=== PATIENT | male | born 1965 | race Caucasian/White ===

== ENCOUNTER 2021-04-10 17:28 | Emergency (ER) | payer OTHER, SELFPAY ==
[2021-04-10 17:29] VITALS: BP 138/84; PULSE 108; RESP 18; TEMP 39.4; O2SAT 95; BMI 18.1
--- NOTE | 2021-04-10 17:54 | RAD_ITS ---
STUDY: X-RAY CHEST REASON FOR EXAM: Male, 55 years old. FEVER TECHNIQUE: AP portable COMPARISON: 07/04/2005 FINDINGS: Mild patchy infiltrate in the right lower lobe.. There is no demonstrated pleural abnormality. Normal size heart. Normal mediastinum and nery. Normal visualized pulmonary arteries. Normal visualized aortic arch and descending thoracic aorta. Normal visualized thoracic spine. Normal visualized ribs, clavicles, and shoulders. There is no demonstrated abnormality of the visualized soft tissue structures of the upper abdomen. RAD/Chest 1 View IMPRESSION: Mild right lower lobe pneumonia. Electronically Signed: Andrew Ramsey MD at 18:24 EDT , Service support ,
[2021-04-10 18:12] VITALS: TEMP 38
--- NOTE | 2021-04-10 18:20 | EKG12_ITS ---
Test Reason : DYSRHYTHMIA Blood Pressure : / mmHG Vent. Rate : 096 BPM Atrial Rate : 096 BPM P-R Int : 140 ms QRS Dur : 088 ms QT Int : 318 ms P-R-T Axes : 076 075 071 degrees QTc Int : 401 ms Normal sinus rhythm Normal ECG Confirmed by TANVIR HERNANDEZ, ADRIEL ([id number]), state editor CLAIRE ADAMSON ([id number]) on 04/11/2021 1:51:39 PM Referred By: GEENA Confirmed By:ADRIEL RAMEY MD
--- NOTE | 2021-04-10 18:24 | CT_ITS ---
STUDY: CT BRAIN WITHOUT CONTRAST REASON FOR EXAM: Male, 55 years old. headache RADIATION DOSAGE (If Supplied By Facility): CTDIvol = ( 44.99 ) mGy, DLP = ( 829.85 ) mGycm TECHNIQUE: Transaxial CT imaging of the brain was performed without administration of intravenous contrast material. Individualized dose optimization techniques were used for this CT. COMPARISON: No relevant priors. FINDINGS: Normal soft tissue structures. Normal calvarium. Normal size ventricles and extra-axial spaces for the patient''s age. Minor periventricular white matter ischemic changes.. Normal basal ganglia and thalami. Normal brainstem. Normal cerebellum. There is no intracranial hemorrhage. There are no findings of an acute ischemic infarction. Normal visualized paranasal sinuses. CT/Brain/Head without Contrast IMPRESSION: Minor periventricular white matter ischemic change. No evidence for obstructive hydrocephalus mass or acute. Electronically Signed: Andrew Ramsey MD at 19:49 EDT , Service support ,
--- NOTE | 2021-04-10 18:24 | EDS_ITS ---
HPI History of Present Illness Chief Complaint: Fever Narrative Narrative: 55-year-old male with history of fever since Wednesday. He states his temperatures have typically got up to about 102. 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 He denies any known injury. He has a headache without any paresthesias, dizziness, visual complaints. Patient states that he has no other known sick contacts. His is with him and she has not been ill. He complains of nausea but has not been vomiting is actually been eating chicken soup and drinking fluids. He has not been vaccinated for COVID- 19. He denies cough,, change in taste or smell. He denies chest pain or shortness of breath. He denies nausea vomiting or diarrhea. He states he has no known medical problems. Patient states that he took 1 dose of Tylenol at 9 in the morning but has not taken another of Tylenol or ibuprofen. He states that he does not like to take pills and just wanted to come to the emergency room to be checked out. PFSH PFSH Medical History no medical history Home Medications azithromycin 250 mg PO DAILY #4 tablet 04/10/21 [Rx Last Taken Unknown] Allergy/AdvReac Type Severity Reaction Status Date / Time Penicillins Allergy Hives Verified 04/10/21 17:28 Social History Smoking Status: Never smoker ROS ROS ED Constitutional Constitutional ED: Reports chills and fever(s) Eyes Eyes: Denies blurry vision or diplopia ENT ENT ED: Denies rhinorrhea or sore throat Cardiovascular Cardiovascular: Denies chest pain or palpitations Respiratory/Chest Respiratory/Chest: Denies cough, dyspnea or sputum Gastrointestinal Gastrointestinal: Reports nausea; Denies abdominal pain, constipation, diarrhea or vomiting Genitourinary Genitourinary ED: Denies dysuria or hematuria Musculoskeletal Musculoskeletal: Reports myalgias and neck pain; Denies arthralgias or back pain Integumentary Denies Abrasions or rash Neurologic Neurologic: Reports headache(s); Denies paresthesias or weakness EXAM Physical Exam Const Vital Signs: 04/10/21 17:29 04/10/21 18:12 04/10/21 18:20 Temperature 102.9 F H 100.4 F H Temperature Source Oral Oral Pulse Rate 108 H Respiratory Rate 18 Respiratory Effort Respiratory Pattern Blood Pressure 138/84 H Blood Pressure Mean 102 Pulse Ox 95 Oxygen Delivery Method Room Air Room Air Oxygen Flow Rate (L/min) 98 04/10/21 18:22 04/10/21 20:06 04/10/21 20:28 Temperature 98.9 F Temperature Source Temporal Pulse Rate 82 78 Respiratory Rate 16 18 Respiratory Effort Normal Non-Labored Respiratory Pattern Normal Blood Pressure 131/67 H 129/60 H Blood Pressure Mean 88 Pulse Ox 95 95 Oxygen Delivery Method Oxygen Flow Rate (L/min) Positive well nourished General Appearance ED: NAD; Negative for pallor HEENT Reports moist mucous membranes Negative for trauma Eyes PERRL and EOMs intact bilaterally General Eye ED: Negative for pale conjunctiva or scleral icterus Neck no lymphadenopathy and supple General: normal visual inspection and trachea midline; Negative for anterior neck swelling, tracheal deviation, submandibular swelling or meningeal signs Chest Wall inspection of chest normal and palpation of chest normal Resp normal respiratory effort and clear to auscultation bilaterally Cardio regular rhythm Rate: tachycardic GI normal to inspection, nondistended, normoactive bowel sounds Extremity normal to inspection General Extremety ED: Negative for edema or tenderness General Extremity: Negative for edema Neuro CN's II-XII intact bilaterally and no sensory deficits noted Sensorium / Orientation: alert Motor Exam: strength 5/5 throughout Psych mental status grossly normal Skin no rashes or lesions noted and no wounds General Skin Exam: Negative for jaundice or pallor MDM MDM MDM Narrative Medical decision making narrative: Patient presenting with headache, neck pain, fever. His symptoms started on Wednesday. He denies a cough, shortness of breath but does have chills and body aches. He said fevers that do respond to Tylenol and ibuprofen but then returned. He has not taken any Tylenol or ibuprofen all day and therefore has been febrile and not eating much. He is able to eat chicken soup. On examination he does not have any meningeal signs although is complaining of neck stiffness he is answering my questions with head nods and shaking his head no he does not have any stiffness on examination. negative jolt sign. His mentation is clear. He has no neurologic findings. Given his tachycardia I did obtain an EKG and is heart rate had decreased to 96 bpm and this is a normal sinus rhythm without signs of ischemic change. CBC shows a leukocytosis of 16.7. There is a left shift and 91.1. Hemoglobin and hematocrit are stable. Platelets are normal. Renal function and electrolytes unremarkable. Troponin is 7. I did obtain a rapid Covid which was negative and therefore did send for a Covid PCR which is also negative. His chest x-ray does show right lower lobe pneumonia on my interpretation and the radiologist does agree. I did obtain a CT brain and cervical spine due to the headache and neck pain and these are both negative for acute abnormalities.I do not believe the patient has meningitis based on his physical examination. He is not having any respiratory symptoms and is not requiring any oxygen and after treating his fever his heart rate is down to 78. He is nontoxic-appearing. At this point I believe the patient can be discharged safely. I will start him on azithromycin with the first dose in the ED. He is given return precautions. Impression: 1. Right lower lobe pneumonia 2. Febrile illness 3. Neck pain 4. With headache Lab Data Attestation: I reviewed the patient's lab results. Labs: Laboratory Results - last 24 hr 04/10/21 04/10/21 04/10/21 18:31 18:40 18:40 WBC 16.7 H RBC 5.16 Hgb 14.1 Hct 42.6 MCV 82.6 MCH 27.3 MCHC 33.1 RDW Std Deviation 44.2 H RDW Coeff of [place] 14.6 Plt Count 159 MPV 8.9 Immature Gran % (Auto) 0.700 Neut % (Auto) 91.1 H Lymph % (Auto) 3.5 L Mcleod % (Auto) 4.3 Eos % (Auto) 0.0 Baso % (Auto) 0.4 Absolute Neuts (auto) 15.3 H Absolute Lymphs (auto) 0.59 L Nucleated RBC % 0 Differential Comment SCANNED Sodium 133 L Potassium 3.5 Chloride 102 Carbon Dioxide 25.0 Anion Gap 6 BUN 15 Creatinine 1.01 Estim Creat Clear Calc 74.51 Est GFR (MDRD) Af Amer 99 Est GFR (MDRD) Non-Af 82 BUN/Creatinine Ratio 14.9 Glucose 163 H Calcium 8.6 Troponin I High Sens 7 COVID-19 (DEJAN) Not Detected Radiography Diagnostic Testing: Clinical Impression(s) from Imaging Studies Chest X-Ray 04/10/21 17:54 IMPRESSION: Mild right lower lobe pneumonia. Electronically Signed: Andrew Ramsey MD at 18:24 EDT , Service support , Brain CT 04/10/21 18:24 IMPRESSION: Minor periventricular white matter ischemic change. No evidence for obstructive hydrocephalus mass or acute. Electronically Signed: Andrew Ramsey MD at 19:49 EDT , Service support , Cervical Spine CT 04/10/21 18:24 IMPRESSION: No evidence for acute fracture or other significant bony pathology.. Mild spondylosis most pronounced at C3-4 and C5-6 Electronically Signed: Andrew Ramsey MD at 19:53 EDT , Service support , Discharge Plan Triage Chief Complaint: Fever ED Provider: Joel Reed Dx/Rx/DC Orders Instructions: Coronavirus Disease 2019 (COVID-19): Caring for Yourself or Others, ED Pneumonia (Adult) Prescriptions: New azithromycin 250 mg tablet 250 mg PO DAILY Qty: 4 RF: 0 Primary Care Provider: Care Physician,No Primary Referrals: Deniz Nava MD [STAFF PHYSICIAN] - 3-5 Days Care Physician,No Primary [Primary Care Provider] - Disposition Disposition: Home, Self Care Discharge Date/Time: 04/10/21 20:29
--- NOTE | 2021-04-10 18:24 | CT_ITS ---
STUDY: CT CERVICAL SPINE WITHOUT CONTRAST REASON FOR EXAM: Male, 55 years old. neck pain RADIATION DOSAGE (If Supplied By Facility): CTDIvol = ( 18.52 ) mGy, DLP = ( 521.61 ) mGycm TECHNIQUE: High resolution transaxial imaging was performed without contrast material. Sagittal and coronal images were reconstructed. Individualized dose optimization techniques were used for this CT. COMPARISON: None FINDINGS: Normal craniovertebral junction. Normal anterior atlantoaxial articulation. Normal odontoid process. Normal cervical lordosis. Normal vertebral bodies and posterior osseous elements. C2-3: Normal endplates. Normal disc height and morphology. Normal central canal and intervertebral neuroforamina. C3-4: Normal endplates. Normal disc height and small right paracentral disc/osteophyte protrusion. Mild narrowing of the central canal and cord impingement.. C4-5: Normal endplates. Normal disc height and morphology. Normal central canal and intervertebral neuroforamina. C5-6: Mild endplate spurring.. Normal disc height and morphology. Normal central canal. Mild bilateral neuroforaminal encroachment secondary to bony hypertrophy.. C6-7: Normal endplates. Normal disc height and morphology. Normal central canal and intervertebral neuroforamina. C7-T1: Normal endplates. Normal disc height and morphology. Normal central canal and intervertebral neuroforamina. Normal visualized soft tissue structures. Incidental finding of interstitial thickening and emphysematous changes in the upper lobes CT/Spine Cervical without Contras IMPRESSION: No evidence for acute fracture or other significant bony pathology.. Mild spondylosis most pronounced at C3-4 and C5-6 Electronically Signed: Andrew Ramsey MD at 19:53 EDT , Service support ,
[2021-04-10] MEDS: Aspirin 81 MG TAB.CHEW 324 MG PO (18:33)
[2021-04-10] MEDS: Acetaminophen 500 MG Tablet 1000 MG PO (18:33)
[2021-04-10] MEDS: 0.9% Normal Saline 1,000 ML 999 ML IV (18:35)
[2021-04-10 18:48] LABS: Absolute Lymphocyte Count 0.59 X10^3/uL (0.83-4.51); Absolute Neutrophil Count 15.3 X10^3/uL (2.0-7.7); Basophil# 0.06 X10^3/uL; Basophil% 0.4 % (0-1); Hematocrit 42.6 % (40-54); Hemoglobin 14.1 g/dL (13.0-16.5); Lymphocyte # 0.59 X10^3/ul (0.83-4.51); Lymphocyte % 3.5 % (19-41); Mean Corp Hgb Conc 33.1 g/dL (32-36); Mean Corpuscular Hgb 27.3 pg (27.0-32.0); Mean Corpuscular Volume 82.6 fL (80-94); Mean Platelet Vol. 8.9 fl (6.2-12.0); Monocyte# 0.72 X10^3/uL; Monocyte% 4.3 % (0-10); NRBC Flagged by Analyzer 0 % (0-5); Neutrophil # 15.26 X10^3/uL (2.7-7.7); Neutrophil % 91.1 % (47-70); POSITIVE DIFFERENTIAL YES; Platelet Count 159 K/mm3 (150-450); RBC Distribution Width CV 14.6 % (11.6-14.6); RBC Distribution Width SD 44.2 fl (35.1-43.9); Red Blood Count 5.16 M/mm3 (4.6-6.2); White Blood Count 16.7 K/mm3 (4.4-11.0)
[2021-04-10 18:49] LABS: Differential Indicated SCAN CRITERIA MET
[2021-04-10 19:06] LABS: Anion Gap 6 (5-15); BUN 15 mg/dL (7-18); BUN/Creat Ratio 14.9 RATIO (10-20); Calcium,Total 8.6 mg/dL (8.5-10.1); Chloride 102 mmol/L (98-107); Creatinine, Serum 1.01 mg/dL (0.70-1.30); EST Glomerular Filtration Rate 82 mL/min (>60); Est Glom Filt Rate - Afr Amer 99 mL/min (>60); Estimated Creatinine Clearance 74.51 ml/min; Glucose 163 mg/dL (74-106); Potassium 3.5 mmol/L (3.5-5.1); Sodium Level 133 mmol/L (136-145); Troponin-I HS 7 pg/mL (3.0-78.0)
[2021-04-10 19:22] LABS: Differential Comment SCANNED
[2021-04-10 20:06] VITALS: BP 131/67; PULSE 82; RESP 16; TEMP 37.2; O2SAT 95
[2021-04-10] MEDS: Ketorolac 15 MG/ML Vial IV (20:14)
[2021-04-10] MEDS: Azithromycin 250 MG Tablet 500 MG PO (20:24)
[2021-04-10 20:28] VITALS: BP 129/60; PULSE 78; RESP 18; O2SAT 95
--- NOTE | 2021-04-14 14:15 | ED.RN ---
Printed work excuse. pts will waste picker tomorrow
== END 2021-04-10 20:29 | disposition home or self-care (01) ==
PROVIDERS: Emergency Provider Student in an Organized Health Care Education/Training Program
DX: J18.9 Pneumonia, unspecified organism (principal); R50.9 Fever, unspecified; Z20.822 Contact with and (suspected) exposure to COVID-19; M54.2 Cervicalgia; R51.9 Headache, unspecified; R11.0 Nausea
CPT/HCPCS: 70450; 71045; 72125; 80048; 84484; 85025; 87426; 87635; 93005; 96361; 96374; 99285; J7030; U0005; A4216; U0003

== ENCOUNTER → 2021-11-14 | Outpatient (CLI) | payer OTHER, SELFPAY ==
[2021-11-14 11:59] LABS: Absolute Lymphocyte Count 2.02 X10^3/uL (0.83-4.51); Absolute Neutrophil Count 6.2 X10^3/uL (2.0-7.7); Basophil# 0.07 X10^3/uL; Basophil% 0.8 % (0-1); Eosinophil# 0.12 X10^3/uL; Eosinophils% 1.4 % (0-5); Lymphocyte # 2.02 X10^3/ul (0.83-4.51); Lymphocyte % 22.8 % (19-41); Mean Corpuscular Hgb 27.1 pg (27.0-32.0); Mean Corpuscular Volume 84.6 fL (80-94); Mean Platelet Vol. 10.1 fl (6.2-12.0); Monocyte# 0.45 X10^3/uL; Monocyte% 5.1 % (0-10); NRBC Flagged by Analyzer 0 % (0-5); Neutrophil # 6.17 X10^3/uL (2.7-7.7); Neutrophil % 69.6 % (47-70); Platelet Count 255 K/mm3 (150-450); RBC Distribution Width CV 15.1 % (11.6-14.6); RBC Distribution Width SD 46.7 fl (35.1-43.9); Red Blood Count 5.91 M/mm3 (4.6-6.2); White Blood Count 8.9 K/mm3 (4.4-11.0)
[2021-11-14 12:16] LABS: Hemoglobin A1c 5.7 % (3.8-5.6); Vitamin D,25 Hydroxy 34.2 ng/mL
[2021-11-14 12:23] LABS: AST(SGOT) 13 U/L (15-37); Alanine Aminotransfer ALT/SGPT 23 U/L (16-61); Alkaline Phosphatase 109 U/L (45-117); Anion Gap 6 (5-15); BUN 20 mg/dL (7-18); BUN/Creat Ratio 19.8 RATIO (10-20); Calcium,Total 8.8 mg/dL (8.5-10.1); Chloride 108 mmol/L (98-107); Cholesterol 125 mg/dL (200); Creatinine, Serum 1.01 mg/dL (0.70-1.30); EST Glomerular Filtration Rate 82 mL/min (>60); Est Glom Filt Rate - Afr Amer 99 mL/min (>60); Free T3 2.9 pg/mL (2.18-3.98); Globulin 3.9 g/dL (2.2-4.2); Glucose 121 mg/dL (74-106); High Density Lipoprotein 49 mg/dL; PSA,Total - Annual Screen 0.98 ng/mL (0.00-4.00); Protein, Total 7.9 g/dL (6.4-8.2); Sodium Level 137 mmol/L (136-145); T4 Free Direct 0.88 ng/dL (0.76-1.46); Thyroid Stim Hormone (TSH) 1.72 uIU/mL (0.358-3.74); Triglycerides 35 mg/dL; Very Low Density Lipoprotein 7 mg/dL (5-40)
== END | disposition home or self-care (01) ==
LOC: BIMLAB 08:58
PROVIDERS: PCP Internal Medicine; Referring Provider Internal Medicine
DX: Z12.5 Encounter for screening for malignant neoplasm of prostate (principal); Z13.220 Encounter for screening for lipoid disorders; Z13.1 Encounter for screening for diabetes mellitus; F17.210 Nicotine dependence, cigarettes, uncomplicated
CPT/HCPCS: 36415; 80053; 80061; 82306; 83036; 84153; 84439; 84443; 84481; 85025; G0103

== ENCOUNTER → 2021-11-20 | Outpatient (CLI) | payer OTHER, SELFPAY ==
--- NOTE | 2021-11-20 16:44 | CT_ITS ---
STUDY: CT CHEST WITHOUT CONTRAST- LOW DOSE SCREENING PROTOCOL REASON FOR EXAM: Male, 56 years old. 30 pack per year history. No current symptoms of lung cancer or pulmonary infection. Shared decision-making with referring PCP documented in patient''s record. RADIATION DOSAGE (If Supplied By Facility): CTDIvol = ( 1.59 ) mGy, DLP = ( 62.95 ) mGycm TECHNIQUE: Low dose screening CT examination performed from the base of the neck to the upper abdomen. Sagittal and coronal reformatted images performed. Sagittal and coronal MIP images provided. The measurements provided are average, rounded measurements per ACR guidelines. COMPARISON: None. FINDINGS: Mild emphysema with some subpleural blebs. Thick linear scarring in the apex of the right lung. 2 adjacent noncalcified subpleural nodules in the posterior medial right upper lobe on image 68 with the largest measuring 8 mm in diameter and correlation with PET CT scan is recommended. Negative, follow-up CT is recommended in 6 to document stability. Linear scar in the right lower lobe. There is no demonstrated pleural abnormality. Normal heart and pericardium. There are calcifications of the coronary arteries. Normal mediastinum. Normal hilar regions. Normal unenhanced pulmonary arteries. Normal aorta arch and descending thoracic aorta. Normal osseous structures. There is no demonstrated abnormality of the visualized upper abdomen. CT/Low Dose CT Lung Screening IMPRESSION: 1. Mild emphysema with an 8 mm noncalcified subpleural nodule in the right upper lobe of the lungs and correlation with PET CT scan is recommended. Follow-up CT is recommended in 6 months to document stability.. 2. Incidental findings include thick right apical scarring. ASSESSMENT CATEGORY: LungRADS 4A - Suspicious. Recommend follow up LDCT in 3 months. PET/CT may be used if there is an 8 mm or larger solid component. Electronically Signed: Wesley Malik MD at 17:13 EDT ,
== END | disposition home or self-care (01) ==
LOC: CT 16:43
PROVIDERS: PCP Internal Medicine; Referring Provider Internal Medicine; Visit Provider Internal Medicine
DX: F17.210 Nicotine dependence, cigarettes, uncomplicated (principal)
CPT/HCPCS: 71271

== ENCOUNTER 2022-01-07 13:54 | Outpatient (CLI) | payer OTHER, SELFPAY ==
--- NOTE | 2022-01-07 14:15 | PET_ITS ---
EXAMINATION: FDG PET-CT INDICATIONS: A 56-year-old male with history of pulmonary nodularity. COMPARISON EXAMINATION: None available INDEX LESION SIZE SUV INTERPRETATION Right upper lung-right upper lobe 1.5 Quantitative criteria for viable neoplasm are not fulfilled, sequential radiologic investigation recommended TECHNIQUE: Following the intravenous administration of 13.36 mCi of F-18 deoxyglucose via the left antecubital fossa, multiplanar image acquisitions of the neck, chest, abdomen and pelvis to level of mid thigh, obtained at one hour post radiopharmaceutical administration contemporaneously interpreted with the current CT of the neck, chest, abdomen and pelvis, to level of mid thigh, dated 01/07/22 via coregistration reveals: BLOOD GLUCOSE LEVEL:?? 87 mg/dl?HEIGHT:?73 inches?WEIGHT: 145 lbs. FINDINGS: Head/Neck: There is no evidence of abnormal increased glucose metabolism in the pharyngeal mucosal space, parapharyngeal space, bilateral-lateral and anterior neck, hypopharynx and distribution of the laryngeal structures. The visualized portion of the cerebral cortical-subcortical structures demonstrate symmetric and preserved glucose metabolism. CHEST: A focal increase in radiopharmaceutical concentration is identified in the right upper posterior lung zone, right upper lobe. The calculated maximal standard uptake value is 1.4. Prominent radiopharmaceutical concentration is identified in the left ventricular myocardium commensurate with the [place]. Increased radiotracer is identified in the ascending and descending thoracic aorta commensurate with activated leukocytes associated with atherosclerotic plaque formation. Pertinent chest CT findings are as follows. There is atherosclerotic calcification defined in the thoracic aorta without evidence of dilatation-aneurysm formation. The parenchymal density defined in the right upper lung field demonstrates minimal FDG uptake as previously described. Bilateral axillary soft tissue is non-glucose avid. Abdomen/Pelvis: Normal physiologic distribution of the radiopharmaceutical is apparent in the hepatic (2.7) and splenic parenchyma, both renal units, bladder and visualized intestinal tract. Accentuated glucose concentration is noted in the right upper pelvic mesentery which appears associated with intestinal tract. Pertinent abdomen and pelvis CT findings are as follows. There is atherosclerotic calcification defined in the abdominal aorta without evidence of dilatation-aneurysm formation. Pelvic arterial calcification is observed. Right and left inguinal soft tissue densities reveal no evidence of increased glucose metabolism. Skeletal: There are no well-defined sclerotic-lytic changes manifest on review of the appendicular-axial skeletal structures. Degenerative changes are noted in the cervical, thoracic and lumbar spine without evidence of increased radiopharmaceutical concentration. PET/PET/CT Tumor Base -Thigh Init IMPRESSION: 1. NEGATIVE EXAMINATION. There is no definitive scintigraphic evidence of malignant-viable neoplasm. 2. Focal increased glucose metabolism identified in the right upper lung field-right upper lobe, does not fulfill quantitative criteria for viable neoplastic transformation. (Roman et al, Annals of Internal Medicine, 138:724, 2003). 3. Metabolic and/or anatomic stability may be ensured in the right upper lung field-right upper lobe abnormality with repeat FDG PET study and/or CT of the thorax in 3-6 months. (Xiu, Journal of Nuclear Medicine 45:88, P2004 Booker, Seminars in Thoracic and Cardiovascular Surgery 14:292, 2002). Electronic Signature Wesley Eaton D.O. Accurate Quantification of SUVs for this report are calculated using the exclusive [employer] Technology. (U.S. Patent No. 10, 674, 983). Standardization and correction of the FDG SUV metric via ACCUQUAN technology allow for vendor non-specific objective quantitative examination comparison and optimization of the sensitivity and specificity of the FDG PET-CT examination. Electronically Signed: Wesley Eaton, at 8:00 EDT ,
== END 2022-01-07 23:59 | disposition home or self-care (01) ==
LOC: ONC 13:55
PROVIDERS: PCP Internal Medicine; Referring Provider Nurse Practitioner Family; Visit Provider Nurse Practitioner Family
DX: R91.1 Solitary pulmonary nodule (principal); R91.8 Other nonspecific abnormal finding of lung field
CPT/HCPCS: 78815; A9552

== ENCOUNTER → 2022-04-06 | Outpatient (CLI) | payer OTHER, SELFPAY ==
--- NOTE | 2022-04-06 15:47 | CT_ITS ---
EXAM: CT CHEST WITH INTRAVENOUS CONTRAST CLINICAL INDICATION: F/U RIGHT LUNG NODULES TECHNIQUE: Helically acquired images were obtained of the chest with intravenous contrast. This CT exam was performed using one or more of the following dose reduction techniques: automated exposure control, adjustment of the mA and/or kV according to patient size, and/or use of iterative reconstruction technique. This report was created using [employer] report generation technology. CONTRAST: IV 100mL Isovue-370 COMPARISON: None. FINDINGS: LUNGS AND PLEURAL SPACES: There are emphysematous bulla in the upper lobes. There is a pleural-based noncalcified nodule in the right upper lobe posteriorly that measures 8 mm. No pneumothorax. HEART: Unremarkable. Heart size is normal. No pericardial effusion. No significant coronary artery calcifications. MEDIASTINUM: Unremarkable. No mediastinal or hilar adenopathy. Esophagus is unremarkable. No hiatal hernia. THYROID: Unremarkable. No thyroid lesions. BONES/JOINTS: Unremarkable. No suspicious lytic or blastic abnormality. VASCULATURE: Unremarkable. Thoracic aorta is non-dilated. No thoracic aortic dissection. No obvious central pulmonary embolism although this study was not performed with the pulmonary embolism protocol. OTHER FINDINGS: There is no comparison exam available. There is a spiculated lesion in the right apex which likely represents scar formation. CT/Chest WITH Contrast IMPRESSION: Spiculated lesion in the right apex likely representing scar. Emphysematous changes are also seen within the lung apices. There is a small 8 mm pleural-based nodule in the right upper lobe posteriorly. No other acute abnormalities. Electronically Signed: Matty Banerjee MD at 0:07 EDT ,
== END | disposition home or self-care (01) ==
LOC: CT 15:47
PROVIDERS: PCP Internal Medicine; Referring Provider Internal Medicine Hematology & Oncology; Visit Provider Internal Medicine Hematology & Oncology
DX: R91.1 Solitary pulmonary nodule (principal)
CPT/HCPCS: 71260; Q9967

== ENCOUNTER → 2022-09-28 | Outpatient (CLI) | payer OTHER, SELFPAY ==
--- NOTE | 2022-09-28 15:33 | CT_ITS ---
INDICATION: Follow-up right upper lobe nodules. EXAMINATION: CT CHEST WITH CONTRAST - CT Chest W/ Contrast Injection TECHNIQUE: Helically acquired images were obtained of the chest following IV contrast. A radiation dose optimization technique was used for this scan. IV Contrast dosage and agent: 100 mL of Isovue-300 COMPARISON: April 06, 2022. FINDINGS: LUNGS, PLEURA AND LARGE AIRWAYS: Diffuse emphysematous changes of the lungs. There is linear scarring of the right lung apex with multiple bullae. There are 2 pleural-based nodules in the posterior right upper lobe (image 35 of series 4. These appears stable. No other mass. No pneumothorax. THYROID: No thyroid lesions. HEART AND PERICARDIUM: Heart size is normal. No pericardial effusion. VESSELS: Thoracic aorta is not dilated. No aortic dissection. No obvious central pulmonary embolism although this study was not performed with the pulmonary embolism protocol. MEDIASTINUM AND BRITTANY: No mediastinal or hilar adenopathy. Esophagus is unremarkable. No hiatal hernia. UPPER ABDOMEN: Stable calcified granulomata in the right liver. The upper abdomen is otherwise normal. BONES: No suspicious lytic or blastic abnormality. CT/Chest WITH Contrast IMPRESSION: 1. Stable pleural-based nodules when compared to April 06, 2023. Fleischner Society Guidelines suggest no follow-up is necessary for patients with low or high risk of malignancy. 2. Stable emphysematous changes in right upper lobe scarring. Electronically Signed: Justus Rizo DO at 21:18 EDT ,
== END | disposition home or self-care (01) ==
LOC: CT 15:31
PROVIDERS: PCP Internal Medicine; Referring Provider Internal Medicine Hematology & Oncology; Visit Provider Internal Medicine Hematology & Oncology
DX: R91.1 Solitary pulmonary nodule (principal)
CPT/HCPCS: 71260; Q9967

== ENCOUNTER → 2023-09-22 | Outpatient (CLI) | payer MEDICAID, SELFPAY | END | disposition home or self-care (01) | LOC: LABSPEC 12:08 | PROVIDERS: PCP Internal Medicine; Referring Provider Physician Assistant; Visit Provider Physician Assistant | DX: N39.0 Urinary tract infection, site not specified (principal) | CPT/HCPCS: 87086 ==

== ENCOUNTER → 2023-11-01 | Outpatient (CLI) | payer MEDICAID, SELFPAY ==
[2023-11-01 14:00] LABS: Bacteria 0 SEEN /hpf (None Seen); Mucous, Urine 0 SEEN /hpf (<or=2+); Red Blood Cells-Urine 0 SEEN /hpf (0-5); Squamous Epithelial Cells - UA 0 SEEN /hpf (0-5); White Blood Cells 0 SEEN /hpf (0-5)
[2023-11-01 14:22] LABS: Absolute Lymphocyte Count 3.43 X10^3/uL (0.83-4.51); Basophil# 0.12 X10^3/uL; Basophil% 1.2 % (0-1); Eosinophil# 0.08 X10^3/uL; Eosinophils% 0.8 % (0-5); Hemoglobin 14.6 g/dL (13.0-16.5); Lymphocyte # 3.43 X10^3/ul (0.83-4.51); Lymphocyte % 33.1 % (19-41); Mean Corp Hgb Conc 31.7 g/dL (32-36); Mean Corpuscular Hgb 26.8 pg (27.0-32.0); Mean Corpuscular Volume 84.4 fL (80-94); Mean Platelet Vol. 9.5 fl (6.2-12.0); Monocyte# 0.57 X10^3/uL; Monocyte% 5.5 % (0-10); NRBC Flagged by Analyzer 0 % (0-5); Neutrophil # 6.02 X10^3/uL (2.7-7.7); Neutrophil % 58.1 % (47-70); Platelet Count 243 K/mm3 (150-450); RBC Distribution Width CV 15.1 % (11.6-14.6); RBC Distribution Width SD 46.4 fl (35.1-43.9); Red Blood Count 5.45 M/mm3 (4.6-6.2); White Blood Count 10.4 K/mm3 (4.4-11.0)
[2023-11-01 14:28] LABS: Color, Urine Yellow (Yellow); Glucose, Dipstick Normal (Normal); Ketone-Dipstick Negative (Negative); Leukocyte Esterase-Dipstick 25 /ul (Negative); Nitrite-Dipstick Negative (Negative); Occult Blood-Urine Negative /ul (Negative); Protein-Dipstick Negative (Negative); Urine Bilirubin Dipstick Negative (Negative); Urine Clarity Clear (Clear); Urine Urobilinogen Normal (Normal)
[2023-11-01 15:18] LABS: Vitamin D,25 Hydroxy 41.7 ng/mL
[2023-11-01 15:24] LABS: ALB/GLOB Ratio 1.1 RATIO (0.9-2.4); AST(SGOT) 14 U/L (15-37); Alanine Aminotransfer ALT/SGPT 19 U/L (16-61); Albumin, Serum 3.9 g/dL (3.2-5.0); Alkaline Phosphatase 120 U/L (45-117); Anion Gap 2 (5-15); BUN 20 mg/dL (7-18); BUN/Creat Ratio 22.6 RATIO (10-20); Calcium,Total 8.7 mg/dL (8.5-10.1); Chloride 110 mmol/L (98-107); Cholesterol 114 mg/dL (200); Creatinine, Serum 0.88 mg/dL (0.70-1.30); EST Glomerular Filtration Rate 95 mL/min (>60); Est Glom Filt Rate - Afr Amer 114 mL/min (>60); Globulin 3.5 g/dL (2.2-4.2); Glucose 103 mg/dL (74-106); High Density Lipoprotein 47 mg/dL; PSA,Total - Annual Screen 1.27 ng/mL (0.00-4.00); Potassium 4.1 mmol/L (3.5-5.1); Protein, Total 7.4 g/dL (6.4-8.2); Sodium Level 138 mmol/L (136-145); Triglycerides 73 mg/dL; Very Low Density Lipoprotein 15 mg/dL (5-40)
--- NOTE | 2023-11-01 16:13 | CYSPIN_PTH ---
PATIENT: LINA DELGADO LOC: LAB U#:[id number] AGE/SX: 58/M ROOM: RE11/01/[address]: Dr. Lisa Tenorio MD : [id number] BED: DIS: 11/01/2023 SPEC #: [id number] RECD: 11/02/23 10:16 STATUS: STACEY GUTIERREZ #: [id number] CASEY: 11/01/23 16:[address]: Lisa Tenorio DEPT: CYTOLOGY RECD BY: Sonya Menard Tissues: Urine Procedures: Pap Stain (control) Special Stain Group II Cytospin Fluid HEADER OPERATION: Not noted PRE-OP DIAGNOSIS: Hematuria TISSUE SUBMITTED: Urine for cytology DIAGNOSIS CYTOLOGY Urine for cytology (cytospin): Negative for high-grade urothelial carcinoma (Cintia Category II). Crystalline debris present. See comment. SALOMÓN/ 11/02/2023 COMMENT The Cintia System for urine cytology diagnostic categorization was used in the evaluation of this case. CYTOLOGY STUDY Slides are reviewed. CYTOLOGY GROSS Received is 50 ml of light-yellow fluid labeled with the patient's name and and designated per the requisition as urine. Submitted for cytology preparation. Mr 11/02/2023 TC:5 CPT: 42407
[2023-11-03 09:31] LABS: Cytology, Body Fluid / CSF SEE PATH REPORT
== END | disposition home or self-care (01) ==
LOC: LAB 13:56
PROVIDERS: PCP Internal Medicine; Referring Provider Internal Medicine; Visit Provider Internal Medicine
DX: Z12.5 Encounter for screening for malignant neoplasm of prostate (principal); F17.210 Nicotine dependence, cigarettes, uncomplicated; R91.8 Other nonspecific abnormal finding of lung field; R31.9 Hematuria, unspecified; E55.9 Vitamin D deficiency, unspecified; Z13.220 Encounter for screening for lipoid disorders
CPT/HCPCS: 84153; 36415; 80053; 80061; 81001; 82306; 85025; 88108; 88313; G0103

== ENCOUNTER → 2023-11-04 | Outpatient (CLI) | payer MEDICAID, SELFPAY ==
--- NOTE | 2023-11-04 16:38 | CT_ITS ---
EXAM: CT CHEST WITH INTRAVENOUS CONTRAST CLINICAL INDICATION: MONITOR LUNG NODULES TECHNIQUE: Helically acquired images were obtained of the chest with intravenous contrast. This CT exam was performed using one or more of the following dose reduction techniques: automated exposure control, adjustment of the mA and/or kV according to patient size, and/or use of iterative reconstruction technique. CONTRAST: IV 100mL Isovue-370 COMPARISON: 09/28/2022 FINDINGS: LUNGS AND PLEURAL SPACES: Emphysematous changes in lung apices. There is stable scarring in the right lung apex. There are 2 pleural-based nodules in the right lobe posteriorly which are stable. No pneumothorax. HEART: Unremarkable. Heart size is normal. No pericardial effusion. MEDIASTINUM: Unremarkable. No mediastinal or hilar adenopathy. Esophagus is unremarkable. No hiatal hernia. THYROID: Unremarkable. No thyroid lesions. BONES/JOINTS: Unremarkable. No suspicious lytic or blastic abnormality. VASCULATURE: Unremarkable. Thoracic aorta is non-dilated. No thoracic aortic dissection. No obvious central pulmonary embolism although this study was not performed with the pulmonary embolism protocol. CT/Chest WITH Contrast IMPRESSION: No acute pulmonary abnormality. There is stable scarring right lung apex as well as stable pleural-based nodules in the right upper lobe. There are emphysematous changes in the lung apices. There has been no change from the liver. Lung-RADS score: 2 - Benign Appearance or Behavior. Recommend continued annual screening with a low-dose CT (LDCT) in 12 months. Electronically Signed: Matty Banerjee MD at 23:57 EDT ,
== END | disposition home or self-care (01) ==
PROVIDERS: PCP Internal Medicine; Referring Provider Internal Medicine Hematology & Oncology; Visit Provider Internal Medicine Hematology & Oncology
DX: R91.8 Other nonspecific abnormal finding of lung field (principal)
CPT/HCPCS: 71260; Q9967

== ENCOUNTER → 2024-01-06 | Outpatient (CLI) | payer OTHER, SELFPAY ==
--- NOTE | 2024-01-06 15:10 | CT_ITS ---
STUDY: CT ABDOMEN AND PELVIS WITH CONTRAST REASON FOR EXAM: Male, 58 years old. Gross hematuria RADIATION DOSAGE (If Supplied By Facility): CTDIvol = ( 8.67 ) mGy, DLP = ( 370.75 ) mGycm TECHNIQUE: Transaxial images were obtained from the dome of the diaphragm to the symphysis pubis with oral contrast. Oral and amp; IV Readi-CAT and amp; 75mL Isovue-370 was administered. Sagittal and coronal images were reconstructed. Individualized dose optimization techniques were used for this CT. COMPARISON: None. FINDINGS: Minimal degree of basilar atelectasis. The visualized portions of the heart are within normal limits. There is a 1 cm cyst in the posterior aspect of the right lobe of the liver superiorly. 5.3 mm cyst in the anterior aspect of the right lobe of liver adjacent to the diaphragm. Normal gallbladder and extrahepatic biliary system. Normal spleen. Normal pancreas. Normal bilateral adrenal glands. Normal right kidney. Normal left kidney. Normal visualized stomach. Normal small intestine. Large amount of fecal material is seen in the colon. Sigmoid diverticulosis with thickening of the wall of the sigmoid colon. Early diverticulitis should be ruled out. The appendix is visualized and appears normal. There is scattered atherosclerotic calcification of the abdominal aorta, without a demonstrated aneurysm. Normal inferior vena cava. Normal retroperitoneum. Normal urinary bladder. The prostate is enlarged measuring 3.9 cm x 5.2 cm. This causes indentation of the bladder base. Normal abdominal wall. There are mild degenerative changes of the visualized lumbar spine. CT/Abdomen/Pelvis WITH Contrast IMPRESSION: Small hepatic cysts. Sigmoid diverticulosis with thickening of the sigmoid wall. Early diverticulitis should BE ruled out. Mild enlargement of the prostate. Electronically Signed: Henry Degroot MD at 11:02 EDT ,
== END | disposition home or self-care (01) ==
LOC: CT 15:00
PROVIDERS: PCP Internal Medicine; Referring Provider Internal Medicine; Visit Provider Internal Medicine
DX: R31.0 Gross hematuria (principal); F17.210 Nicotine dependence, cigarettes, uncomplicated
CPT/HCPCS: 74177; Q9967

== ENCOUNTER 2024-05-19 08:40 | Day surgery (SDC) | payer OTHER, SELFPAY ==
[2024-05-19] VITALS (8 sets, daily range): BP systolic 97–123; BP diastolic 70–94; PULSE 70–86; RESP 16; TEMP 36.2–36.6; O2SAT 98–100; BMI 18.4
--- NOTE | 2024-05-19 08:46 | PCM.PRE.AN2 ---
ASA Classification* ASA Classification ASA Classification: 2 Assessment & Plan Anesthesia* Anesthesia Assessment Anesthesia Assessment: Discussed sedation and/or anesthesia options, risks, benefits, and alternatives with patient/parents/legal guardian/POA. Questions invited. The patient/parents/legal guardian/POA seems to understand and agrees to proceed with anesthesia plan. Reviewed the physical assessment, medical history, allergy history and patient home medications list prior to surgery/procedure/anesthetic and documented any changes. Performed airway and anesthesia risk assessments. Anesthesia Type Anesthesia Type: MAC Anesthesia Focused Assessment* Airway Assessment Mouth opens: >3 cm Mallampati Score: II Focused Labs Anesthesia Preop lab: CBC WBC 10.4 K/mm3 (4.4-11.0) 11/01/23 14:00 RBC 5.45 M/mm3 (4.6-6.2) 11/01/23 14:00 Hgb 14.6 g/dL (13.0-16.5) 11/01/23 14:00 Hct 46.0 % (40-54) 11/01/23 14:00 Plt Count 243 K/mm3 (150-450) 11/01/23 14:00 CHEMISTRY Potassium 4.1 mmol/L (3.5-5.1) 11/01/23 14:00 Sodium 138 mmol/L (136-145) 11/01/23 14:00 BUN 20 mg/dL (7-18) H 11/01/23 14:00 Creatinine 0.88 mg/dL (0.70-1.30) 11/01/23 14:00 Glucose 103 mg/dL (74-106) 11/01/23 14:00 TSH 1.72 uIU/mL (0.358-3.74) 11/14/21 08:59 COAG Pre-Assessment Diagnosis/Proposed Procedure Planned Operative Procedure(s): COLONOSCOPY-OA Anesthesia History 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 When Was Last Pacemaker Check QUESTION #4 FULL TEXT: You/Your Family Experience fever (hyperthermia) with Anesthesia Last Oral Intake Last Oral intake: Last Oral Intake NPO since Meds taken in AM with sips of water? Meds patient instructed to take am of surgery PONV PONV - capacitor inspector: PONV - capacitor inspector Female No 05/17/24 10:47 HX of Motion Sickness Yes 05/17/24 10:47 HX of N/V After Surgery No 05/17/24 10:47 Non-Smoker No 05/17/24 10:47 Duration of Surgery greater No 05/17/24 10:47 than 60 minutes Number of Risk Factors 1 05/17/24 10:47 PONV Score Low Risk 05/17/24 10:47 Height & Weight Height & Weight: Anesthesia: Height & Weight Height 6 ft 1 in 03/29/24 08:48 Respiratory Assessment Respiratory Assessment - capacitor inspector: Respiratory Tract Infection Hx - capacitor inspector Hx Respiratory Tract Infection No 05/17/24 10:47 STOP Sleep Apnea STOP Sleep Apnea - capacitor inspector: STOP Sleep Apnea - capacitor inspector Hx Hypertension No 05/17/24 10:47 Hx Sleep Apnea No 05/17/24 10:47 CPAP BIPAP Do you snore loudly (louder No 05/17/24 10:47 than talking or can be heard Do you often feel tired/ No 05/17/24 10:47 fatigued/ sleepy during daytime? Has anyone observed you stop No 05/17/24 10:47 breathing during sleep? STOP Results Negative 05/17/24 10:47 QUESTION #5 FULL TEXT : Do you snore loudly (louder than talking or can be heard through closed doors)? 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 Specify any problems Hx of Preganancy in last 3 N/A 05/17/24 10:47 Months Nurse Filling Out Transfusion VCHRISTIN 05/17/24 10:47 & Questions: Date: 05/17/24 05/17/24 10:47 Time: 10:48 05/17/24 10:47 Patient unable to answer at this time (ie. confused, unrespo /Reproduction History /Reproductive History - capacitor inspector: /Reproductive Hx- capacitor inspector Hx Now Gestational Age (in weeks): EDC: Hx Hx Para Hx Section SAB PFSH Medical History Wears dentures Wears glasses Smoker Colon cancer screening Lung nodules Pneumonia Home Medications ?Medication ?Instructions ?Recorded ?Last Taken ?Type NK 05/17/24 Unknown History Allergy/AdvReac Type Severity Reaction Status Date / Time Penicillins Allergy Severe swelling Verified 05/17/24 10:42 Family History Mother Cancer Breast cancer (1995) Brother Cancer Lung cancer (metastatic) Sister Diabetes Kidney disease Father Kidney disease Cancer Skin cancer (1999) Surgical History History of hernia repair Social History household members: spouse current occupational status: employed Smoking Status: Current every day smoker tobacco type: cigarettes Tobacco: How many years used: 30 alcohol intake: never substance use type: does not use what type of physical activity do you participate in: walking frequency: 5-6 times per week Review of Systems (Anesthesia) ROS Narrative System reviewed and no additional complaints, except as documented.
--- NOTE | 2024-05-19 09:04 | H&P.OPEN ---
HPI - General HPI Narrative LINA DELGADO, is a 58 M who presents for screening colonoscopy. This is the patient's first colonoscopy. He denies any abdominal pain or blood in the stool. He has no family history of colon cancer. [facility] Medical History Wears dentures Wears glasses Smoker Colon cancer screening Lung nodules Pneumonia Home Medications ?Medication ?Instructions ?Recorded ?Last Taken ?Type NK 05/17/24 Unknown History Allergy/AdvReac Type Severity Reaction Status Date / Time Penicillins Allergy Severe swelling Verified 05/19/24 08:58 Family History Mother Cancer Breast cancer (1995) Brother Cancer Lung cancer (metastatic) Sister Diabetes Kidney disease Father Kidney disease Cancer Skin cancer (1999) Surgical History History of hernia repair Social History household members: spouse current occupational status: employed Smoking Status: Current every day smoker tobacco type: cigarettes Tobacco: How many years used: 30 alcohol intake: never substance use type: does not use what type of physical activity do you participate in: walking frequency: 5-6 times per week Past Medical/Surgical History Planned Operation Planned Operative Procedure(s): COLONOSCOPY-OA Previous Hospitalizations/Surgeries HX Hospitalizations: No Any Problems With Anesthesia: No You/Your Family Experience Fever (Hyperthermia) With Anes: No Cholinesterase deficiency: No Cardiovascular Hx Hypertension: No Respiratory Hx Sleep Apnea: No Hx Respiratory Tract Infection/Cold (presently): No Do You Snore Loudly (louder than talking or can be heard): No Do You Often Feel Tired/ Fatigued/ Sleepy Dring Daytime?: No Has Anyone Observed You Stop Breathing During Sleep?: No Result (for STOP score): Negative Smoking Status: Current every day smoker Neurological Does patient have nerve stimulator: No Miscellaneous Recent Exposure to Contagious Disease: No Allergies Penicillins Allergy (Severe, Verified 05/19/24 08:58) swelling Discharge Is Pt Admitted From a Detention, or a Senior Living: No After D/C, Where Do you Plan to Go: Return Home Vital Signs Vital Signs Vital Signs: 05/19/24 09:00 05/19/24 09:00 Temperature 97.2 F L Temperature Source Temporal Pulse Rate 86 Respiratory Rate 16 Respiratory Pattern Normal Blood Pressure 123/94 H Blood Pressure Mean 103 Blood Pressure Source Monitor Blood Pressure Position Sitting Blood Pressure Location Left Arm Pulse Ox 100 Oxygen Delivery Method Room Air Weight Weight: 139 lb 15.896 oz Body Mass Index (BMI) 18.4 Physical Exam Const alert and oriented x3 HEENT normocephalic Eyes PERRL Resp normal respiratory effort and normal air movement Cardio regular rate and regular rhythm GI soft to palpation, non-tender and non-distended Extremity normal to inspection Assessment & Plan Assessment/Plan (1) Colon cancer screening: PLAN: I explained endoscopy in detail to the patient. I explained the risks including but not limited to stroke or heart attack with anesthesia, perforation of the GI tract, bleeding, infection. I explained that any of these could necessitate further emergency surgery. The patient understands and all questions were answered sufficiently. The patient wishes to proceed with procedure. Toño Helton MD Pager: [facility] [address] [place] [address], [address] [place] [address] Office: Surgery Risks - Colonoscopy Risks Include but are not Limited To: Risks include but are not limited to: Bleeding, perforation requiring further surgery, inability to complete colonoscopy requiring barium enema.
--- NOTE | 2024-05-19 09:28 | OP.COLON_ITS ---
Patient Name: Jam Lazar Procedure Date: 05/19/2024 9:09 AM Date of : 1965 Age: 58 Procedure: Colonoscopy Indications: Screening for colorectal malignant neoplasm Providers: Toño Helton MD Referring MD: Lisa Tenorio Medicines: Propofol per Anesthesia Patient Profile: This is a 58 year old male. Refer to note in patient chart for documentation of history and physical. Last Colonoscopy: none. The patient's first colonoscopy is today. Complications: No immediate complications. Procedure: Pre-Anesthesia Assessment: - Prior to the procedure, a History and Physical was performed, and patient medications and allergies were reviewed. The patient's tolerance of previous anesthesia was also reviewed. The risks and benefits of the procedure and the sedation options and risks were discussed with the patient. All questions were answered, and informed consent was obtained. Prior Anticoagulants: The patient has taken no anticoagulant or antiplatelet agents. After reviewing the risks and benefits, the patient was deemed in satisfactory condition to undergo the procedure. After I obtained informed consent, the scope was passed under direct vision. Throughout the procedure, the patient's blood pressure, pulse, and oxygen saturations were monitored continuously. The Colonoscope was introduced through the anus and advanced to the cecum, identified by appendiceal orifice and ileocecal valve. The colonoscopy was performed without difficulty. The patient tolerated the procedure well. The quality of the bowel preparation was good. The ileocecal valve, appendiceal orifice, and rectum were photographed. Scope In: 9:17:27 AM Scope Withdrawal Time 0 hours 6 minutes 15 seconds Scope Out: 9:26:29 AM Total Procedure Duration Time 0 hours 9 minutes 2 seconds Findings: The entire examined colon appeared normal on direct and retroflexion views. Impression: - The entire examined colon is normal on direct and retroflexion views. - No specimens collected. Recommendation: - Discharge patient to home. - Resume previous diet. - Continue present medications. - Repeat colonoscopy in 10 years for screening purposes. Procedure Code(s): --- Professional --- 11287, Colonoscopy, flexible; diagnostic, including collection of specimen(s) by brushing or washing, when performed (separate procedure) Diagnosis Code(s): --- Professional --- Z12.11, Encounter for screening for malignant neoplasm of colon CPT copyright 2021 [employer]. All rights reserved. The codes documented in this report are preliminary and upon pipelines laborer review may be revised to meet current compliance requirements. Toño Helton MD 05/19/2024 9:28:14 AM This report has been signed electronically. Number of Addenda: 0 Note Initiated On: 05/19/2024 9:09 AM
--- NOTE | 2024-05-19 09:28 | OP.CCLET_ITS ---
05/19/2024 Lisa Tenorio [facility] [address] [place] [address] Re : Colonoscopy procedure for Jam Lazar Dear Dr. Tenorio This procedure was performed on Sunday, May 19, 2024. My impressions and recommendations are as follows: Impressions : - The entire examined colon is normal on direct and retroflexion views. - No specimens collected. Recommendations : - Discharge patient to home. - Resume previous diet. - Continue present medications. - Repeat colonoscopy in 10 years for screening purposes. My findings are described in the full procedure note, which is enclosed. If I can be of further assistance, please feel free to contact me at Doctor phone number(s): , Work: . Sincerely, Toño Helton MD 05/19/2024 9:28:14 AM This report has been signed electronically.
--- NOTE | 2024-05-19 09:34 | PCM.POST.ANE ---
Anesthesia: Postop Eval I Current Vital Signs Temperature: 97.9 F Pulse Rate: 78 Blood Pressure: 106/70 Respiratory Rate: 16 Pulse Ox: 99 Oxygen Delivery Method: Room Air Assessment Airway patent: Yes Spontaneous unlabored respirations: Yes Mental status: Asleep nausea: No Vomiting: No Anesthesia Complication: No Fluid Hydration Crystalloid volume administer (ml): 40 Total IV fluid infused: 40 Progress Note Anesthesia document: Postop Eval 1 completed: Yes
--- NOTE | 2024-05-19 12:07 | PCM.POSTANE2 ---
Anesthesia Postop Eval I Sum Postop Eval Completion status Anesthesia document: Postop Eval 1 completed: Yes Anesthesia Postop Eval I Summary Anesthesia Postop Eval I Summary: Anesthesia Postop Eval I: Assessment Summary Airway patent Yes 05/19/24 09:36 [email or web address] Spontaneous unlabored Yes 05/19/24 09:36 [email or web address] respirations Mental status Asleep 05/19/24 09:36 [email or web address] nausea No 05/19/24 09:36 [email or web address] Vomiting No 05/19/24 09:36 [email or web address] Anesthesia Postop Eval I: Fluid Summary Crystalloid volume administer 40 05/19/24 09:36 [email or web address] (ml) Colloids volume administered ( ml) Blood Product volume administered (ml) Total IV fluid infused 40 05/19/24 09:36 [email or web address] Anesthesia Postop Eval I: Summary Notes Anesthesia Complication No 05/19/24 09:36 [email or web address] Anesthesia Complication Comment: Post-operative progress note Anesthesia: Postop Eval II Evaluation Mental status: Awake Pain Level: 0 nausea: No Vomiting: No
== END 2024-05-19 10:28 | disposition home or self-care (01) ==
LOC: EN 08:40 → AC 08:43
PROVIDERS: PCP Internal Medicine; Referring Provider Internal Medicine; Visit Provider Surgery
PROC: 0DJD8ZZ Inspection of Lower Intestinal Tract, Via Natural or Artificial Opening Endoscopic (ICD-10-PCS; CPT 45378; principal; 2024-05-19 09:40)
DX: Z12.11 Encounter for screening for malignant neoplasm of colon (principal); F17.210 Nicotine dependence, cigarettes, uncomplicated; Z87.19 Personal history of other diseases of the digestive system
CPT/HCPCS: 45378; A4216; J2405